=== PATIENT | male | born 1965 | race Asian ===

== ENCOUNTER 2024-03-18 07:05 | Day surgery (SDC) | payer OTHER ==
[~2024-03-18] VITALS: Ht 170.2 cm; Wt 63.5 kg
[2024-03-18] MEDS ORDERED: MIDAZOLAM 2 MG/2 ML VIAL ONE (08:37)
[2024-03-18] MEDS ORDERED: fentaNYL citrate 0.05 MG/ML VIAL ONE (08:37)
[2024-03-18] MEDS: MIDAZOLAM 2 MG/2 ML VIAL IVP ONE (09:16)
[2024-03-18] MEDS: fentaNYL citrate 0.05 MG/ML VIAL IVP ONE (09:18)
[2024-03-18] MEDS: LIDOCAINE 2% 100 MG/5 ML UJET TP ONE (09:33)
== END 2024-03-18 11:00 | disposition home or self-care (01) ==
LOC: MDS 07:05 → MMU 07:07 → MDS 11:00
PROVIDERS: ATTEND Internal Medicine Gastroenterology
DX: Z12.11 Encounter for screening for malignant neoplasm of colon (principal); K29.00 Acute gastritis without bleeding; K57.30 Diverticulosis of large intestine without perforation or abscess without bleeding; K64.4 Residual hemorrhoidal skin tags; E78.00 Pure hypercholesterolemia, unspecified; R11.10 Vomiting, unspecified; Z80.1 Family history of malignant neoplasm of trachea, bronchus and lung; Z98.890 Other specified postprocedural states
CPT/HCPCS: 36415; 43239; 45378; 86677; J2250; J3010